=== PATIENT | male | born 1995 | race Two or more races ===

== ENCOUNTER 2019-06-27 13:27 | Emergency (ER) | payer OTHER ==
[~2019-06-27] VITALS: Ht 167.6 cm; Wt 62.0 kg
[~2019-06-27 13:27] MED LIST: LIDOcaine 1% W/epiNEPHrine 1:100,000 20ml vial ONE
[2019-06-27] MEDS ORDERED: TETanus/Pertussis (Acell)/Diphther VAC/PF (Tdap-Adult) 0.5ml syringe IMVAC ONE (14:10)
[2019-06-27 15:00] VITALS: BP 120/90
== END 2019-06-27 15:03 | disposition home or self-care (01) ==
LOC: ER 13:29 → EDBD 13:29 → ER 15:03
DX: S81.011A Laceration without foreign body, right knee, initial encounter (principal); W26.0XXA Contact with knife, initial encounter; Y93.89 Activity, other specified; Y92.89 Other specified places as the place of occurrence of the external cause; Y99.8 Other external cause status
CPT/HCPCS: 12002; 90471; 99283